=== PATIENT | female | born 1980 | race Caucasian/White ===

== ENCOUNTER → 2016-08-26 | Outpatient (CLI) | payer BC ==
--- NOTE | ~2016-08-26 | US98 ---
[facility] A Service of [facility] RADIOLOGY TEXT RESULTS PATIENT: PAULA CHAMBERLAIN LOCATION: [facility] : 76 UNIT #: [id number] AGE: [address]: KAYY MARINA APRN SEX: F ORDER DR: [id number] [facility]. [place], [place] [address] [id number] MR#: [id number] Acc #: [id number] NAME: PAULA CHAMBERLAIN : 1980 SEX: F STUDY DATE/TIME: 08/26/2016 11:21 UNIT: [facility] ROOM: STUDY DESCRIPTION: US Pelvic Non-OB Complete Attending Physician: Kayy Marina Aprn Referring Physician: Kayy Marina Aprn Ordering Physician: Kayy Marina Aprn Primary Care Physician: Kayy Marina Aprn MEDICAL IMAGING REPORT This report is preliminary unless electronic signature is present EXAM Transabdominal and transvaginal pelvic ultrasound. DATE 08/26/2016 HISTORY Polycystic ovary syndrome. Absent menses. Regular menses with cramping. Facial hair, acne, hair thinning. G0. Last menstrual period January 2016. Symptoms began 11 years ago per patient. COMPARISON None. FINDINGS Transabdominal imaging was performed for generalized visualization of the pelvic structures while transvaginal imaging was performed for more detailed evaluation of the adnexa. The uterus measures 7.9 x 4.3 x 5.9 cm. Endometrial bilayer thickness is within normal limits, 8 mm. No definite myometrial lesions identified. The study is limited and technically challenging secondary to the patient's morbid obesity, and obscuration of pelvic structures by patient's body habitus. There is questionable arcuate configuration of the uterine endometrium. The cervix appears somewhat thickened heterogeneous. Extensive cystic changes are seen within the uterine cervix, slightly more centrally oriented and more out of proportion than that expected for simple cervical nabothian cysts. This is best demonstrated on the longitudinal views, but not satisfactorily visualized on the transverse images. No definite fluid is seen within the endometrial canal. [facility] A Service of [facility] RADIOLOGY TEXT RESULTS PATIENT: PAULA CHAMBERLAIN LOCATION: [facility] : 76 UNIT #: [id number] AGE: [address]: KAYY MARINA APRN SEX: F ORDER DR: Neither the right nor the left ovary can be satisfactorily visualized either transabdominally or transvaginally. IMPRESSION 1. The study is markedly limited secondary to patient's body habitus. 2. Neither the right nor the left ovary can be satisfactorily visualized on either attempts at transabdominal or transvaginal imaging. 3. Questionable arcuate configuration of the uterine endometrium. Endometrial bilayer thickness in the mid uterine segment measures up to 8 mm. 4. The uterine cervix appears somewhat thickened heterogeneous with extensive cystic changes, with the cystic changes being somewhat out of proportion for that typically seen with nabothian cysts. This is seen on only the longitudinal images. 5. For the reasons described above, dedicated pelvic MRI without and with contrast (female pelvic protocol) may prove helpful for further evaluation of both the patient's ovaries (which cannot be visualized) as well as the uterine cervix. Dictated by... Cat Zaldivar M.D. THIS IS AN ELECTRONICALLY VERIFIED REPORT Cat Zaldivar M.D. at 08/27/2016 2:10 PM SUZANNE/mika TD: 08/26/2016 21:39 JOB #: [id number] MEDICAL IMAGING REPORT Page 1 of 1 COPY
== END | disposition home or self-care (01) ==
LOC: CWCC 10:57
DX: E28.2 Polycystic ovarian syndrome (principal)
CPT/HCPCS: 76830; 76856